=== PATIENT | female | born 1960 | race African-American/Black ===

== ENCOUNTER 2023-02-12 09:02 | Outpatient (CLI) | payer OTHER | END 2023-02-12 09:03 | disposition home or self-care (01) | LOC: CSHMRI 09:02 | PROVIDERS: ATTEND Urology | DX: E27.8 Other specified disorders of adrenal gland (principal) | CPT/HCPCS: 74183; 82565 ==

== ENCOUNTER 2024-03-22 08:35 | Outpatient (CLI) | payer OTHER, MEDICAID ==
[2024-03-22] MEDS ORDERED: Magnevist 469MG/ML 20 ML VIAL ONE (15:03)
== END 2024-03-22 08:36 | disposition home or self-care (01) ==
LOC: CSHMRI 08:35
PROVIDERS: ATTEND Urology
DX: E27.8 Other specified disorders of adrenal gland (principal)
CPT/HCPCS: 74183